=== PATIENT | male | born 1960 | race Caucasian/White ===

== ENCOUNTER 2022-11-08 00:39 | Day surgery (SDC) | payer OTHER, SELFPAY ==
[2022-10-22 14:21] VITALS: BMI 27.1
--- NOTE | 2022-11-05 13:34 | PM.HPGS ---
History of Present Illness History of Present Illness Consent: Risks, benefits, and alternatives have been discussed and questions answered. Patient agrees to proceed with procedure. Chief complaint: family hx colorectal ca Narrative: Rogerio Jama is a 61 year old male referred for colon cancer screening. He has a family history of colon cancer. He has had a polyp removed himself about 6 years ago Review of Systems Review of Systems: All systems reviewed & are unremarkable except as noted in HPI and below PMFSH Family History Family History Mother Hypertension Family history of diabetes mellitus in first degree relative Father Carcinoma of colon Social History Social History Smoking packs per day: 1 Smoking cigarettes per day: 20.0 Years smoked: 10 Smoking pack-years: 10.00 Smoking status: Former smoker Tobacco type: cigarettes Alcohol intake: never Substance use: never Substance use type: does not use Living arrangements: with family Spiritual care concerns: No Meds Home Medications and Allergies Home Medications Medication Instructions Recorded Confirmed Type aspirin 325 mg PO DAILY 10/22/22 11/08/22 History gemfibrozil 600 tablet PO DAILY 10/22/22 11/08/22 History glimepiride 4 mg PO BID 10/22/22 11/08/22 History lisinopril 20 mg PO DAILY 10/22/22 11/08/22 History metformin 1,000 mg PO BID 10/22/22 11/08/22 History rosuvastatin 40 mg PO DAILY 10/22/22 11/08/22 History Allergies Allergy/AdvReac Type Severity Reaction Status Date / Time No Known Allergies Allergy Verified 11/08/22 07:23 Exam Resp: Auscultation: clear to auscultation bilaterally Cardio: Rate: regular rate Rhythm: regular rhythm GI: GI Palp: Yes Soft to palpation and No Tenderness to palpation present (GI) Assessment and Plan Assessment and plan (1) Colon cancer screening: Code(s): Z12.11 - Encounter for screening for malignant neoplasm of colon Status: Acute Assessment and Plan: Colonoscopy with possible biopsy or polypectomy or cautery or injection of substances.
[2022-11-08 07:23] VITALS: BP 120/78; PULSE 78; RESP 18; TEMP 36.2; O2SAT 99; BMI 26.6
[2022-11-08 07:31] LABS: Glucose Point of Care 194 mg/dl (65-105)
[2022-11-08] MEDS: LACTATED RINGERS 1,000 ML 150 ML IV CONT (07:34)
--- NOTE | 2022-11-08 07:55 | P.PNAN_ITS ---
Anes - Initial Pre Proc Eval Procedure: Operation Date: 11/08/22 08:30 Proposed Procedures p Colonoscopy - Jasper Zepeda MD Date/Time: 11/08/22 07:55 Surgeon: Jasper Zepeda MD Pre Op Diagnosis: family hx colorectal ca Patient Data Age: 61 Gender: M Height: 1.83 m Weight: 88.9 kg Last Vital Signs Temp 97.1 F L 11/08/22 07:23 Pulse 78 11/08/22 07:23 Resp 18 11/08/22 07:23 BP 120/78 11/08/22 07:23 Pulse Ox 99 11/08/22 07:23 O2 Del Method Room Air 11/08/22 07:23 Allergies Allergy/AdvReac Type Severity Reaction Status Date / Time No Known Allergies Allergy Verified 11/08/22 07:23 Home Medications Medication Instructions Recorded Confirmed Type aspirin 325 mg PO DAILY 10/22/22 11/08/22 History gemfibrozil 600 tablet PO DAILY 10/22/22 11/08/22 History glimepiride 4 mg PO BID 10/22/22 11/08/22 History lisinopril 20 mg PO DAILY 10/22/22 11/08/22 History metformin 1,000 mg PO BID 10/22/22 11/08/22 History rosuvastatin 40 mg PO DAILY 10/22/22 11/08/22 History Laboratory Tests 11/08/22 07:29 POC Capillary Glucose 194 mg/dl H mg/dl (65-105) Patient hx anesthesia problems: none Family hx anesthesia problems: none Results Review: All pre-operative results and documents have been reviewed as part of the pre- operative evaluation. [facility] Family History Family History Mother Hypertension Family history of diabetes mellitus in first degree relative Father Carcinoma of colon Social History Social History Smoking packs per day: 1 Smoking cigarettes per day: 20.0 Years smoked: 10 Smoking pack-years: 10.00 Smoking status: Former smoker Tobacco type: cigarettes Alcohol intake: never Substance use: never Substance use type: does not use Living arrangements: with family Spiritual care concerns: No Anes - Eval Final PreProcedure Day of Procedure 11/08/22 07:55 Patient weight: overweight Heart: regular rate and rhythm Lungs: clear to auscultation Airway: Mallampati scale class II Neurological: alert and oriented Last oral intake: >/= 8 hours ASA classification: III Emergent: no Anesthetic plan: proceed Anesthesia type and monitoring: general GIVS and standard monitoring Results Review: All pre-operative results and documents have been reviewed as part of the pre- operative evaluation. Informed Consent: The patient's anesthetic plan and its attendant risks and benefits were discussed with the patient/family/POA. Questions were solicited and answers provided to the satisfaction of the patient/family/POA.
[2022-11-08 08:26] VITALS: BP 97/60; PULSE 80; RESP 15; O2SAT 95
[2022-11-08 08:36] VITALS: BP 118/81; PULSE 78; RESP 21; O2SAT 94
== END 2022-11-08 08:50 | disposition home or self-care (01) ==
PROVIDERS: PCP Internal Medicine; Visit Provider Internal Medicine Gastroenterology
PROC: 0DJD8ZZ Inspection of Lower Intestinal Tract, Via Natural or Artificial Opening Endoscopic (ICD-10-PCS; CPT 45378; principal; 2022-11-08 08:30)
DX: Z12.11 Encounter for screening for malignant neoplasm of colon (principal); D12.2 Benign neoplasm of ascending colon; Z80.0 Family history of malignant neoplasm of digestive organs; Z79.84 Long term (current) use of oral hypoglycemic drugs; Z79.82 Long term (current) use of aspirin; Z87.891 Personal history of nicotine dependence
CPT/HCPCS: 45385; 82948; 88305; J2704; J7120

== ENCOUNTER 2022-12-29 07:43 | Outpatient (CLI) | payer OTHER, SELFPAY ==
--- NOTE | 2022-12-29 08:10 | ECG_ITS ---
Measurements Intervals [place] Rate: P: [place]: QRS: QRSD: T: QT: QTc: Interpretive Statements NORMAL SINUS RHYTHM NORMAL ECG Electronically Signed On 12-29-2022 13:50:04 CDT by Gregorio Brewer M.D.
[2022-12-29 08:40] LABS: Anion Gap 7 mmol/L (8-16); Blood Urea Nitrogen 14 mg/dL (9-20); Calcium 9.2 mg/dL (8.4-10.2); Carbon Dioxide 26 mmol/L (22-30); Chloride 104 mmol/L (98-107); Estimated Glomerular Filt Rate > 60; Glucose 119 mg/dL (65-110); Potassium 4.4 mmol/L (3.4-5.0); Sodium 137 mmol/L (137-145)
== END 2022-12-29 07:44 | disposition home or self-care (01) ==
LOC: ANHSURGERY 07:46
PROVIDERS: Anesthesiology; PCP Internal Medicine; Visit Provider Otolaryngology
DX: Z01.810 Encounter for preprocedural cardiovascular examination (principal); Z01.812 Encounter for preprocedural laboratory examination; E11.9 Type 2 diabetes mellitus without complications; I10 Essential (primary) hypertension
CPT/HCPCS: 36415; 80048; 93005

== ENCOUNTER 2023-01-03 00:26 | Day surgery (SDC) | payer OTHER, SELFPAY ==
[2022-12-27 14:33] VITALS: BMI 27.1
--- NOTE | 2022-12-27 14:38 | PC.NURSE ---
Report to the Outpatient Waiting Room, entrance under the green pavilion located off [facility], at time _0700_ on date _[id number]_. Planned Procedure Time: _0900_. Time changes happen often and if your time is changed the preop area will call you the afternoon before. - You and your visitor will be asked to self-screen and do not enter if you have any COVID symptoms. - Only one visitor is requested with a max of two and NO children visitors are allowed at this time. - The patient visitor may be requested to leave or wait in car when not with patient due to distancing restrictions. - A mask is optional within the hospital at this time. Patients may have clear liquids (water, carbonated beverages, clear teas, apple juice) until 3 hours prior to surgery with a maximum of 20 ounces. - No food from midnight until time of surgery Take the following medications with a SIP of water the morning of surgery: None DO NOT STOP ANY OF YOUR OTHER PRESCRIPTION MEDICATIONS PRIOR TO SURGERY ?EXCEPT THE FOLLOWING Medications to discontinue per physician None Date to take last dose Please no make-up, nail romansh, hairspray, perfume, deodorant, or body powder the day of surgery. No jewelry (including any body piercings) or valuables the day of surgery, leave them at home. Please take a shower or bath the night before, or the morning of, surgery with an antibacterial soap. Wear comfortable, loose fitting clothing. - Jewelry must be removed prior to entering the operating room. Rings and piercings that are not removed may be cut off. - The hospital will not accept responsibility for valuables. - Please leave all valuables, including medications, at home the day of surgery. If you are going home after surgery, a licensed refrigerated company driver must drive you home. - NO public transportation without another adult if you receive anesthesia. - We recommend that an adult stay with you for 24 hours following discharge. - We also recommend that you do not drive, make important decision, drink alcoholic beverages, or take any drugs that were not prescribed by your health care provider for at least 24 hours after your discharge time. Follow any additional instructions given to you from your surgeon. If you or anyone in your household have experienced Covid symptoms in the past week, please notify your surgeon or the nurse liaison at the phone number below for possible testing. Telephone instructions given to __Patient___and asked if any additional questions and then verbalized understanding. Patient advised to call surgeon office or pre surgery nurse liaison [phone] if any additional questions.
[2023-01-03] VITALS (9 sets, daily range): BP systolic 115–145; BP diastolic 73–93; PULSE 66–83; RESP 13–18; TEMP 36.1–36.4; O2SAT 96–100
[2023-01-03] MEDS: ACETAMINOPHEN 500 MG TABLET 1000 MG PO (07:45)
[2023-01-03 07:46] LABS: Glucose Point of Care 114 mg/dl (65-105)
[2023-01-03] MEDS: OXYMETAZOLINE HCL 0.05% NAS 15 ML BTL (*BKC) 1 SPRAY NASAL (07:56)
--- NOTE | 2023-01-03 08:01 | P.PNAN_ITS ---
Anes - Initial Pre Proc Eval Procedure: Operation Date: 01/03/23 09:00 Proposed Procedures p Septoplasty, - Timo Ferrell MD s Bilateral Turbinate Reduction - Timo Ferrell MD Date/Time: 01/03/23 08:01 Surgeon: Timo Ferrell MD Pre Op Diagnosis: deviated septum, turbinate hypertrophy Patient Data Age: 62 Gender: M Height: 1.83 m Weight: 89.65 kg Last Vital Signs Temp 36.4 C 01/03/23 07:52 Pulse 83 01/03/23 07:52 Resp 14 01/03/23 07:52 BP 115/75 01/03/23 07:52 Pulse Ox 100 01/03/23 07:52 O2 Del Method Room Air 01/03/23 07:52 Allergies Allergy/AdvReac Type Severity Reaction Status Date / Time No Known Allergies Allergy Verified 01/03/23 07:56 Home Medications Medication Instructions Recorded Confirmed Type aspirin 325 mg PO DAILY 10/22/22 12/27/22 History gemfibrozil 600 tablet PO DAILY 10/22/22 12/27/22 History glimepiride 4 mg PO BID 10/22/22 12/27/22 History lisinopril 20 mg PO DAILY 10/22/22 12/27/22 History metformin 1,000 mg PO BID 10/22/22 12/27/22 History rosuvastatin 40 mg PO DAILY 10/22/22 12/27/22 History dulaglutide 0.75 mg/0.5 mL 0.75 mg subcut WEEKLY 12/27/22 12/27/22 History subcutaneous pen injector (Trulicity) Laboratory Tests 01/03/23 07:43 POC Capillary Glucose 114 mg/dl H mg/dl (65-105) Patient hx anesthesia problems: none Family hx anesthesia problems: none Results Review: All pre-operative results and documents have been reviewed as part of the pre- operative evaluation. [facility] Past Medical History Medical History (Updated 01/03/23 @ 08:02 by Surendra Weldon DO) Diabetes type 2, controlled Hyperlipidemia Hypertension RUBINA (obstructive sleep apnea) Family History Family History Mother Hypertension Family history of diabetes mellitus in first degree relative Father Carcinoma of colon Social History Social History Smoking packs per day: 1 Smoking cigarettes per day: 20.0 Years smoked: 15 Smoking pack-years: 15.00 Smoking status: Former smoker Tobacco type: cigarettes Smoking end date: 12/27/92 Alcohol intake: never Substance use: never Substance use type: does not use Living arrangements: alone Spiritual care concerns: No Anes - Eval Final PreProcedure Day of Procedure 01/03/23 08:01 Patient weight: overweight Heart: regular rate and rhythm Lungs: clear to auscultation Airway: Mallampati scale class III Neurological: alert and oriented Last oral intake: >/= 8 hours ASA classification: III Emergent: no Anesthetic plan: proceed Anesthesia type and monitoring: general ETT and standard monitoring Results Review: All pre-operative results and documents have been reviewed as part of the pre- operative evaluation. Informed Consent: The patient's anesthetic plan and its attendant risks and benefits were discussed with the patient/family/POA. Questions were solicited and answers provided to the satisfaction of the patient/family/POA.
[2023-01-03] MEDS: LACTATED RINGERS 1,000 ML 30 ML IV CONT (09:06)
--- NOTE | 2023-01-03 09:23 | PM.IMHP ---
H&P: HPI History of Present Illness Date/Time: 01/03/23 09:23 Chief Complaint: nasal dyspnea, epistaxis Narrative: nasal dyspnea, epistaxis, here for surgery Review of Systems Review of Systems: All systems reviewed & are unremarkable except as noted in HPI and below PMFSH Past Medical History Medical History (Updated 01/03/23 @ 09:24 by Timo Ferrell MD) Diabetes type 2, controlled Hyperlipidemia Hypertension RUBINA (obstructive sleep apnea) Family History Family History Mother Hypertension Family history of diabetes mellitus in first degree relative Father Carcinoma of colon Social History Social History Smoking packs per day: 1 Smoking cigarettes per day: 20.0 Years smoked: 15 Smoking pack-years: 15.00 Smoking status: Former smoker Tobacco type: cigarettes Smoking end date: 12/27/92 Alcohol intake: never Substance use: never Substance use type: does not use Living arrangements: alone Spiritual care concerns: No Meds Home Medications and Allergies Home Medications Medication Instructions Recorded Confirmed Type aspirin 325 mg PO DAILY 10/22/22 12/27/22 History gemfibrozil 600 tablet PO DAILY 10/22/22 12/27/22 History glimepiride 4 mg PO BID 10/22/22 12/27/22 History lisinopril 20 mg PO DAILY 10/22/22 12/27/22 History metformin 1,000 mg PO BID 10/22/22 12/27/22 History rosuvastatin 40 mg PO DAILY 10/22/22 12/27/22 History dulaglutide 0.75 mg/0.5 mL 0.75 mg subcut WEEKLY 12/27/22 12/27/22 History subcutaneous pen injector (Trulicity) Allergies Allergy/AdvReac Type Severity Reaction Status Date / Time No Known Allergies Allergy Verified 01/03/23 09:07 Vital Signs Vital Signs - 24 hr 01/03/23 07:52 Temperature 36.4 C Pulse Rate 83 Respiratory Rate 14 Blood Pressure 115/75 Pulse Oximetry 100 Oxygen Delivery Room Air Exam Narrative: deviated septum, rest of exam wnl Assessment and Plan Assessment and plan (1) Deviated septum: Code(s): J34.2 - Deviated nasal septum Status: Acute Plan Rogerio has nasal dyspnea, non responsive to medication, here for septoplasty and turbinoplasty. Hx of epistaxis as well. r/b/a reviewe,d pt understands and agrees to proceed. Refer to outpt H&P for full details.
--- NOTE | 2023-01-03 09:24 | WPDHPUPDATE1 ---
History and Physical Update Update Date/Time: 01/03/23 09:24 History and Physical has been reviewed, including an updated exam of the patient. There are NO changes in the patient's condition. Risks, benefits, and alternatives have been discussed and questions answered. Patient agrees to proceed with procedure.
[2023-01-03] MEDS: ceFAZolin 2 GM/D5W 50 ML 2 GM/50 ML BAG IVPB (09:36)
[2023-01-03] MEDS: LIDO 1%/EPINEPHRINE 1:100,000 50 ML VIAL INFILTRATE (09:43)
[2023-01-03] MEDS: MUPIROCIN 2% OINT 22 GM TUBE 1 APPLIC EACH NARE (09:45)
--- NOTE | 2023-01-03 10:26 | P.OP_ITS ---
Procedure Note - Detailed Date of Procedure 01/03/23 Pre-op Diagnosis deviated septum, turbinate hypertrophy Post-op Diagnosis Same Procedure Performed Septoplasty turbinoplasty Surgeon Timo Ferrell MD Anesthesia General Indications Nasal dyspnea Findings Right caudal septal deviation Description of Procedure After obtaining informed consent and proper site verification the patient was brought to the operating room and placed on the operating table in the supine position. They were placed under general endotracheal anesthesia by the anesthesia provider. The patient was then draped in standard fashion for septoplasty and turbinoplasty. A timeout was performed and the correct patient and procedure were verified. The nasal cavity was injected with 1% lidocaine with 1-100,000 epinephrine and packed with afrin-soaked cottonoid pledgets. ? Attention was then directed to the nasal septum. A hemitransfixion incision was made in the left caudal septum and a mucoperichondrial flap was elevated in the usual fashion. The flap was elevated under endoscopic visualization and the remainder of the case was performed with endoscopic assistance. Using a D- knife, an incision was made through the cartilaginous septum with care to preserve the appropriate caudal and dorsal ?L-strut? of cartilage. The cartilage was then disarticulated from the bony-cartilaginous junction and the deviated cartilage was removed. Further deviated bone and cartilage was removed from the maxillary crest and posterior bony septum with care to avoid injury to the mucoperichondrial flap using a combination of dissection and Ruben- Cole forceps. Once this was completed, the hemitransfixion incision was closed using simple interrupted 4-0 chromic suture. A quilting stitch to reapproximate the mucoperichondrial flaps was then placed using 4-0 plain gut suture on a Marlo needle. ? Next attention was directed to the turbinates. Using a 0? telescope and 2mm turbinate blade microdebrider, a stab incision was made in the anterior face of the turbinate and dissection was carried posterior to perform submucosal resection. Next the turbinate was outfractured using a blunt instrument. A similar procedure was then performed on the right-hand side without difficulty. Malave splints covered in mupirocin ointment were placed in the nasal cavity and secured to the membranous septum using a 2-0 nylon suture. ?The patient was awakened from general anesthesia extubated in the operating room, and transported to the recovery room in stable condition without complication. Estimated Blood Loss 10 Drains No Packing Yes (malave splints bilaterally) Pathology None sent Complications No immediate complications Condition Stable Disposition PACU
[2023-01-03 10:36] LABS: Glucose Point of Care 110 mg/dl (65-105)
--- NOTE | 2023-01-03 11:04 | SUR.PHASEI ---
1101: Face tent removed.
== END 2023-01-03 12:30 | disposition home or self-care (01) ==
PROVIDERS: PCP Internal Medicine; Visit Provider Otolaryngology
PROC: (CPT 30520; principal; 2023-01-03 09:00)
PROC: (CPT 30520; 2023-01-03 09:00)
DX: J34.2 Deviated nasal septum (principal); J34.3 Hypertrophy of nasal turbinates; E11.9 Type 2 diabetes mellitus without complications; I10 Essential (primary) hypertension; E78.5 Hyperlipidemia, unspecified; G47.33 Obstructive sleep apnea (adult) (pediatric); Z79.82 Long term (current) use of aspirin; Z87.891 Personal history of nicotine dependence; Z79.84 Long term (current) use of oral hypoglycemic drugs; Z79.899 Other long term (current) drug therapy
CPT/HCPCS: 30520; 30140; 36415; 80048; 82948; 93005; A9270; J0330; J0690; J1100; J1170; J2250; J2405; J2704; J3010; J7120